=== PATIENT | female | born 1985 | race Caucasian/White ===

== ENCOUNTER → 2020-07-03 15:05 | Outpatient (BNVA) | payer BC, SELFPAY | PROVIDERS: Family Provider Nurse Practitioner; PCP Nurse Practitioner; Visit Provider Obstetrics & Gynecology | DX: Z12.4 Encounter for screening for malignant neoplasm of cervix (principal) | CPT/HCPCS: 88175 ==

== ENCOUNTER 2022-02-23 13:30 | Outpatient (CLI) | payer BC, SELFPAY | END 2022-02-23 13:31 | disposition home or self-care (01) | LOC: SLEEP 02-24 16:19 | PROVIDERS: PCP Nurse Practitioner; Visit Provider Nurse Practitioner Family | DX: G47.10 Hypersomnia, unspecified (principal) | CPT/HCPCS: G0399 ==

== ENCOUNTER → 2023-08-26 10:15 | Outpatient (BNVA) | payer BC, SELFPAY | PROVIDERS: PCP Nurse Practitioner; Visit Provider Nurse Practitioner Women's Health | DX: Z12.4 Encounter for screening for malignant neoplasm of cervix (principal) | CPT/HCPCS: 87624 ==